=== PATIENT | female | born 1985 | race Caucasian/White ===

== ENCOUNTER 2019-03-15 09:18 | Emergency (ER) | payer BC, OTHER ==
[2019-03-15 09:37] VITALS: BP 119/71
--- NOTE | 2019-03-15 10:16 | UC ---
Complaint Female HPI - HPI Summary HPI Summary: 3 DAYS OF DYSURIA, URINARY FREQUENCY AND URGENCY. HAS SUPRAPUBIC PAIN AND LOW BACK PAIN. DENIES FEVER. NO NAUSEA. - History Of Current Complaint Chief Complaint: [facility] Stated Complaint: URINARY COMPLAINT Time Seen by Provider: 03/15/19 09:39 Hx Obtained From: Patient Hx Last Menstrual Period: tubal ligation Onset/Duration: Gradual Onset, Lasting Days, Still Present Timing: Constant Severity Initially: Moderate Severity Currently: Moderate Pain Intensity: 9 Pain Scale Used: 0-10 Numeric Character: Burning Aggravating Factor(s): Urination Associated Signs And Symptoms: Positive: Back Pain. Negative: Fever, Vaginal Bleeding/Discharge - Allergies/Home Medications Allergies/Adverse Reactions: Allergies Allergy/AdvReac Type Severity Reaction Status Date / Time No Known Allergies Allergy Verified 03/13/19 07:41 PMH/Surg Hx/FS Hx/Imm Hx Previously Healthy: Yes - Surgical History Surgical History: Yes Surgery Procedure, Year, and Place: - Family History Known Family History: Positive: None - Social History Alcohol Use: None Substance Use Type: None Smoking Status (MU): Never Smoked Tobacco Review of Systems All Other Systems Reviewed And Are Negative: Yes Constitutional: Positive: Chills Respiratory: Positive: Negative Cardiovascular: Positive: Negative Gastrointestinal: Positive: Abdominal Pain Genitourinary: Positive: Dysuria, Frequency, Urgency Physical Exam Triage Information Reviewed: Yes Appearance: Well-Appearing, No Pain Distress, Well-Nourished Vital Signs: Initial Vital Signs Temp 99.1 F 03/15/19 09:29 Pulse 93 03/15/19 09:29 Resp 16 03/15/19 09:29 BP 119/71 03/15/19 09:29 Pulse Ox 99 03/15/19 09:29 Laboratory Tests 03/15/19 09:41 POC Urine Color Dark yellow POC Urine Clarity Cloudy POC Urine pH 6.5 POC Ur Specif Delta 1.015 POC Urine Protein 2+ A POC Ur Glucose (UA) Negative POC Urine Ketones Negative POC Urine Blood 3+ A POC Urine Nitrite Positive A POC Urine Bilirubin Negative POC Urine Urobilinogen 0.2 POC U Leukocyte Esteras 3+ A Eyes: Positive: Conjunctiva Clear ENT: Positive: Hearing grossly normal Neck: Positive: Supple Respiratory: Positive: No respiratory distress, No accessory muscle use Cardiovascular: Positive: Pulses Normal Abdomen Description: Positive: Soft, Other: - MILD SUPRAPUBIC TENDERNESS. Negative: CVA Tenderness (R), CVA Tenderness (L), Distended, Guarding Musculoskeletal: Positive: No Edema Neurological: Positive: Alert Psychological: Positive: Age Appropriate Behavior Skin: Negative: Rashes Complaint Female Dx - Differential Dx/Diagnosis Provider Diagnosis: UTI (urinary tract infection) Discharge ED - Sign-Out/Discharge Documenting (check all that apply): Patient Departure All imaging exams completed and their final reports reviewed: No Studies - Discharge Plan Condition: Stable Disposition: HOME Prescriptions: Phenazopyridine TAB* [Pyridium TAB*] 200 mg PO TID #6 tab Sulfamethox/Trimethoprim DS* [Bactrim DS 800/160 TAB*] 1 tab PO BID #14 tab Patient Education Materials: Urinary Tract Infection in Women (ED) Referrals: Danyell Grigsby RN [Primary Care Provider] - If Needed - Billing Disposition and Condition Condition: STABLE Disposition: Home
== END 2019-03-15 10:13 | disposition home or self-care (01) ==
LOC: UCEAST 09:18
DX: N39.0 Urinary tract infection, site not specified (principal)
CPT/HCPCS: 81003; 87077; 87086; 87186; 99212; G0463